=== PATIENT | male | born 1970 | race Caucasian/White ===

== ENCOUNTER 2016-05-20 13:35 | Emergency (ER) | payer OTHER ==
[2016-05-20] MEDS ORDERED: IOPAMIDOL 370 (76%) 100 ML VIAL IV ONE (13:36)
[2016-05-20 15:05] LABS: SPECIFIC GRAVITY 1.025 (1.001-1.030); URINE BILIRUBIN NEGATIVE (NEGATIVE); URINE BLOOD NEGATIVE (NEGATIVE); URINE GLUCOSE (UA) NEGATIVE (NEGATIVE); URINE LEUKOCYTE ESTERASE NEGATIVE (NEGATIVE); URINE NITRITE NEGATIVE (NEGATIVE); URINE PROTEIN NEGATIVE (NEGATIVE); URINE UROBILINOGEN NORMAL (0-1 mg/dl)
[2016-05-20 15:09] LABS: URINE APPEARANCE CLEAR; URINE COLOR YELLOW
[2016-05-20] MEDS ORDERED: DIAZEPAM 5 MG/ML SYRINGE 2 ML ONE (17:33)
[2016-05-20] MEDS ORDERED: LACTATED RINGERS 1,000 ML ONE (17:33)
[2016-05-20 17:53] LABS: CALCIUM 9.7 mg/dL (8.6-10.3); MAGNESIUM 2.3 mg/dL (1.9-2.7)
--- NOTE | 2016-05-20 18:15 | CT ---
ABD/PELVIS W/ CON COMPARISON: CT abdomen and pelvis, 02/13/2015 HISTORY: Leg cramps and paresthesias. History of colon cancer. Technique: Contrast no oral contrast. Intravenous injection contrast 100 mL Isovue 370. Using a [employer] Aquilion [address] scanner, images were obtained from the diaphragm to the floor the pelvis. An automated dose reduction technique was used to minimize patient radiation dose. Dose information: CTDIvol (mGy): 15.80 DLP(mGycm): 829.90 FINDINGS: Lung bases: Normal. Inferior mediastinum and heart: Normal. Liver: Low-attenuation. Gallbladder:Normal. Bile ducts: Normal. Pancreas: Normal. Spleen: Normal. Adrenal glands: Normal. Kidneys: Bilateral simple renal cysts. Ureters: Normal Urinary bladder: Normal. Prostate gland and seminal vesicles: Normal. Blood vessels: Normal Lymph nodes: Normal Stomach: Normal Duodenum: Normal Small intestine: Normal Appendix: No appendix is visible. Colon: Normal Abdominal wall and supporting musculature: Fat-containing right inguinal hernia. Bones: Normal IMPRESSION: 1. No acute finding. 2. Fatty infiltration liver. 3. Bilateral simple renal cysts. 4. The appendix is not visible. Possibly removed. 5. Fat-containing right inguinal hernia. The report was sent to the emergency department electronic medical record system, 05/20/2016 at 18:16
== END 2016-05-20 19:48 | disposition home or self-care (01) ==
LOC: ED 13:35
DX: R25.2 Cramp and spasm (principal); R10.9 Unspecified abdominal pain; R20.9 Unspecified disturbances of skin sensation; I10 Essential (primary) hypertension; F17.220 Nicotine dependence, chewing tobacco, uncomplicated
CPT/HCPCS: 80048; 83735; 81003; 74177; 99284 ×2; 96374; 96361 ×2; 51798; J3360; J7120; Q9967